=== PATIENT | male | born 1985 | race Caucasian/White ===

== ENCOUNTER 2023-03-15 20:53 | Emergency (ER) | payer OTHER ==
--- NOTE | 2023-03-15 21:19 | ED General ---
General Chief Complaint: Cough/Cold/Flu Symptoms Stated Complaint: WEAKNESS, VOMITING, DIZZINESS, FEVERISH Source of Information: Patient Exam Limitations: No Limitations (CRISTIN REED) History of Present Illness Date Seen by Provider: Mar 15, 2023 Time Seen by Provider: 21:16 Initial Comments Patient is a 37-year-old male who presents to the ED with lightheadedness, dizziness, weakness, body aches, fever, vomiting diarrhea. Symptoms started on Monday. Woke up in the [place] felt nauseous vomited once went back to sleep. Had a few episodes of watery stool on Monday without any blood or mucus. Patient states he has been drinking Pedialyte. Denies eating anything different but was concerned for food poisoning. Started feeling lightheaded dizziness specially with standing today. He had no associated chest pain cough or shortness of breath. Patient has been drinking Pedialyte which he states appears to be improving the lightheadedness. Subjective fever. Denies of any pain with urination. Reports some potential mosquito bites. Denies of any recent travels or surgeries. No known cardiac history. Denies headache, visual changes, sore throat, ear pain, abdominal pain, dysuria, hematuria. Patient denies of any tick bite (CRISTIN REED) Allergies and Home Medications Allergies Coded Allergies: No Known Drug Allergies (Unverified , 03/15/23) Patient Home Medication List Home Medication List Reviewed: Yes (CRISTIN REED) Review of Systems Review of Systems Constitutional: dizziness, fever, malaise, weakness EENTM: No ear pain, No blurred vision, No double vision, No vision loss, No mouth pain, No mouth swelling Respiratory: No cough, No dyspnea on exertion Cardiovascular: No chest pain Gastrointestinal: No abdominal pain; diarrhea, nausea, vomiting Genitourinary: No decreased output, No discharge Musculoskeletal: No back pain, No joint pain Skin: No change in color, No change in hair/nails (CRISTIN REED) All Other Systems Reviewed Negative Unless Noted: Yes (CRISTIN REED) Physical Exam Vital Signs Vital Signs - First Documented 03/15/23 03/15/23 21:02 21:44 Temp 36.3 Pulse 97 Resp 16 B/P (MAP) 107/81 (90) Pulse Ox 99 O2 Delivery Room Air (TAMI PETERSEN DO) Vital Signs Capillary Refill : (CRISTIN REED) Height, Weight, BMI Height: '" Weight: lbs. oz. kg; BMI Method: General Appearance: No Apparent Distress, WD/WN Eyes: Bilateral Eye Normal Inspection, Bilateral Eye PERRL, Bilateral Eye EOMI HEENT: PERRL/EOMI, TMs Normal, Normal ENT Inspection, Pharynx Normal Neck: Full Range of Motion, Normal Inspection, Non Tender, Supple Respiratory: Chest Non Tender, Lungs Clear, Normal Breath Sounds, No Accessory Muscle Use, No Respiratory Distress Cardiovascular: Regular Rate, Rhythm, No Edema, No Gallop, No JVD, No Murmur Gastrointestinal: Normal Bowel Sounds, No Organomegaly, No Pulsatile Mass, Non Tender Back: Normal Inspection, No CVA Tenderness, No Vertebral Tenderness Extremity: Normal Capillary Refill, Normal Inspection Neurologic/Psychiatric: Alert, Oriented x3, No Motor/Sensory Deficits, Normal Mood/Affect, import export agent II-XII Norm as Tested Skin: Normal Color, Warm/Dry (CRISTIN REED) Progress/Results/Core Measures Suspected Sepsis SIRS Temperature: Pulse: Respiratory Rate: Blood Pressure / Mean: (CRISTIN REED) Results/Orders Lab Results Laboratory Tests Test 03/15/23 21:08 Range/Units Influenza Type A (RT-PCR) Not Detected Not Detecte Influenza Type B (RT-PCR) Not Detected Not Detecte SARS-CoV-2 RNA (RT-PCR) Not Detected Not Detecte (TAMI PETERSEN DO) Vital Signs/I&O 03/15/23 03/15/23 21:02 21:44 Temp 36.3 36.3 Pulse 97 81 Resp 16 16 B/P (MAP) 107/81 (90) 117/82 Pulse Ox 99 O2 Delivery Room Air (FABY PETERSENA Andria DO) Vital Signs/I&O Capillary Refill : (CRISTIN REED) Departure Communication (PCP) Patient presents ED flulike symptoms. Symptoms started on Monday with episode of vomiting few episodes of diarrhea. He was concerned for food poisoning. Denies eating anything different. Generalized pains, lightheadedness and dizziness today. Has been drinking Pedialyte. States he is feeling somewhat better. Suggest CBC, CMP liter fluid COVID influenza. Refused lab work. Agreed to COVID influenza which was obtained. COVID influenza was negative. He was not hypoxic. He was afebrile. Heart rate in the upper 90s. He denies chest pain, shortness of breath or cough. Soft abdomen. No meningeal signs. Does not appear toxic. He states potential mosquito bites. It does have a few red papules to his lower extremities that does not appear cellulitic. No pustules. Denies of any tick bites that he can recall. At this time he refused any further work-up and was requesting to be discharged. He states he feels like he is doing better especially with the lightheadedness. He has been able to eat and drink. He states he will return if symptoms worsen. Patient states he is feeling much better that he does not have COVID. (CRISTIN REED) Impression Primary Impression: Flu-like symptoms Disposition: HOME, SELF-CARE Condition: Stable Departure-Patient Inst. Decision time for Depature: 21:42 (CRISTIN REED) Referrals: NO,LOCAL PHYSICIAN (PCP) Primary Care Physician [facility] [place] Patient Instructions: Viral Syndrome (DC) Add. Discharge Instructions: Recommend staying hydrated, drink plenty of fluids. If any worsening symptoms return back to ED. All discharge instructions reviewed with patient and/or family. Voiced understanding. Work/School Note: Work Release Form Date Seen in the Emergency Department: Mar 15, 2023 Return to Work: Mar 17, 2023 ATTENDING PHYSICIAN NOTE: I WAS PHYSICALLY PRESENT ER PHYSICIAN, BUT I WAS NOT INVOLVED IN ANY DECISION MAKING OR ANY CARE OF THIS PATIENT, AND I AM NOT COLLABORATING PHYSICIAN. (TAMI PETERSEN DO) CRISTIN REED Mar 15, 2023 21:19 TAMI PETERSEN DO Mar 15, 2023 22:28
[2023-03-15 21:44] VITALS: BP 117/82
== END 2023-03-15 21:45 | disposition home or self-care (01) ==
LOC: ER 21:02
DX: B34.9 Viral infection, unspecified (principal); R50.9 Fever, unspecified; R42 Dizziness and giddiness; R53.1 Weakness; R11.2 Nausea with vomiting, unspecified; R19.7 Diarrhea, unspecified; R53.81 Other malaise; Z20.822 Contact with and (suspected) exposure to COVID-19
CPT/HCPCS: 87636; 99283